=== PATIENT | female | born 2000 | race Caucasian/White ===

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

== ENCOUNTER 2019-02-24 15:03 | Emergency (ER) | payer BC, MEDICAID, OTHER ==
--- NOTE | 2019-02-24 18:09 | ER Document Report ---
ED General - General Chief Complaint: Numbness of Arm Stated Complaint: NUMBNESS IN ARM Time Seen by Provider: 02/24/19 18:00 Notes: 18-year-old female with factor V Leiden presents to the emergency department with chief complaint of right upper extremity swelling, numbness, pain that is gotten progressively worse over the last 1 week. She states that the pain is her right distal upper extremity and does not originate in her neck in any of the spinal nerve roots. She says that it is gotten progressively worse and if she does not move it or do any range of motion it swells up and she is unable to make a fist. She said the extremity is cold and is currently numb. She denies any acute shortness of breath or chest pain, neck or shoulder pain, nausea or vomiting, abdominal pain, any other extremity swelling, pain, numbness, no other complaints. TRAVEL OUTSIDE OF THE [place] IN LAST 30 DAYS: No - Related Data Allergies/Adverse Reactions: Lactase [From [facility]] Allergy (Verified 02/24/19 15:05) Lactobacillus acidophilus [From [facility]] Allergy (Verified 02/24/19 15:05) Past Medical History - Social History Smoking Status: Never Smoker Chew tobacco use (# tins/day): No Frequency of alcohol use: None Drug Abuse: None Family History: Arthritis, CAD, COPD, DM, Hyperlipidemia, Hypertension, Malignancy, Thyroid Disfunction. denies: CVA Patient has suicidal ideation: No Patient has homicidal ideation: No Pulmonary Medical History: Reports: Hx Pneumonia Renal/ Medical History: Denies: Hx Peritoneal Dialysis Musculoskeletal Medical History: Reports Hx Musculoskeletal Trauma Psychiatric Medical History: Reports: Hx Anxiety, Hx Attention Deficit Hyperactivity Disorder, Hx Depression - anxiety - Immunizations Immunizations up to date: Yes Hx Diphtheria, Pertussis, Tetanus Vaccination: Yes Review of Systems - Review of Systems Constitutional: See HPI EENT: No symptoms reported Cardiovascular: See HPI Respiratory: See HPI Gastrointestinal: See HPI Genitourinary: No symptoms reported Female Genitourinary: No symptoms reported Musculoskeletal: No symptoms reported Skin: No symptoms reported Hematologic/Lymphatic: No symptoms reported Neurological/Psychological: See HPI Physical Exam - Vital signs Vitals: Temp Pulse Resp BP Pulse Ox 97.8 F 66 18 128/75 H 100 02/24/19 15:13 02/24/19 15:13 02/24/19 15:13 02/24/19 15:13 02/24/19 15:13 - Notes Notes: PHYSICAL EXAMINATION: Reviewed vital signs and charting by RN GENERAL: Alert, interacts well. No acute distress. HEAD: Normocephalic, atraumatic. EYES: Pupils equal and round. Extraocular movements intact. ENT: Oral mucosa moist, tongue midline. NECK: Full range of motion. Trachea midline. LUNGS: Clear to auscultation bilaterally, no wheezes, rales, or rhonchi. No respiratory distress. HEART: Regular rate and rhythm. No murmur ABDOMEN: soft, non-tender. No distention. Bowel sounds present EXTREMITIES: Moves all 4 extremities spontaneously. No edema, No cyanosis. 2+ radial pulses bilateral, right hand and distal right upper extremity is cool to touch compared to the left. PSYCH: Normal affect, normal mood. SKIN: cool, dry, normal turgor. No rashes or lesions noted. Course - Re-evaluation Re-evalutation: 02/24/19 18:08 Overall well-appearing, right distal upper extremity is cooler compared to the left and cap refill slightly delayed, no edema at this time. Because of patient's history and her concerned because her mom had massive PE in the past I will get a venous Doppler of the right upper extremity. 02/24/19 19:22 Doppler negative for any DVT or SVT. Patient is stable for discharge. - Vital Signs Vital signs: Temp Pulse Resp BP Pulse Ox 97.8 F 66 18 128/75 H 100 02/24/19 15:13 02/24/19 15:13 02/24/19 15:13 02/24/19 15:13 02/24/19 15:13 Discharge - Discharge Clinical Impression: Right arm numbness, Pain and swelling of right upper extremity Condition: Good Disposition: HOME, SELF-CARE Additional Instructions: You were seen in the emergency department this afternoon for arm. The ultrasound was negative for any concerning blood clots which is reassuring considering her condition. Is unclear why you are having this problem but you should follow-up with your primary doctor. If you develop fever, worsening pain and swelling, extreme pain with passive movement, acute shortness of breath or chest pain, you pass out, or have any other concerning symptoms please merely return to the emergency department.
[2019-02-24 20:03] VITALS: BP 123/68
--- NOTE | 2019-02-24 23:42 | RADIOLOGY REPORT (SQ) ---
EXAM DESCRIPTION: US EXTREMITY VEINS UNILATERAL COMPLETED DATE/TME: 02/24/2019 18:04 CLINICAL HISTORY: R arm swelling/hx Factor V Leiden COMPARISON: None. TECHNIQUE: Grayscale, color Doppler, and spectral Doppler imaging of the right upper extremity venous system. FINDINGS: Normal compressibility and/or flow identified in the right internal jugular, subclavian, axillary, brachial, radial, ulnar, cephalic, and basilic veins. No echogenic thrombus identified. No soft tissue abnormalities. IMPRESSION: No evidence of right upper extremity DVT.
== END 2019-02-24 20:03 | disposition home or self-care (01) ==
LOC: ER 15:03
DX: R20.0 Anesthesia of skin (principal); M79.601 Pain in right arm; M79.89 Other specified soft tissue disorders; Z88.8 Allergy status to other drugs, medicaments and biological substances
CPT/HCPCS: 93971; 99284